=== PATIENT | male | born 1990 | race Two or more races ===

== ENCOUNTER 2017-05-16 04:02 | Emergency (ER) | payer OTHER ==
[~2017-05-16] VITALS: Ht 177.8 cm; Wt 79.4 kg
[2017-05-16 04:02] VITALS: BP 124/71
== END 2017-05-16 04:52 ==
LOC: ER 04:04
DX: S60.221A Contusion of right hand, initial encounter (principal); Y04.0XXA Assault by unarmed brawl or fight, initial encounter; Y93.89 Activity, other specified; Y92.89 Other specified places as the place of occurrence of the external cause; Y99.9 Unspecified external cause status
CPT/HCPCS: 73130; 99284; A4606; Z7610